=== PATIENT | female | born 1975 | race Caucasian/White ===

== ENCOUNTER 2021-05-04 10:56 | Emergency (ER) | payer BC ==
[2021-05-04] MEDS ORDERED: Ondansetron 4 MG/2 ML SDV IVPUSH ONE (11:20)
[2021-05-04] MEDS ORDERED: Ketorolac 30 MG/ML SDV IVPUSH ONE (11:20)
[2021-05-04] MEDS ORDERED: Morphine 4 MG/ML VIAL IVPUSH ONE (12:13)
[2021-05-04] MEDS ORDERED: HYDROmorphone 2 MG/ML SDV IVPUSH ONE ×2 (12:31→13:53)
--- NOTE | 2021-05-04 12:54 | EDM.PDOC ---
ED HPI GENERAL MEDICAL PROBLEM - General Chief Complaint: Abdominal Pain Stated Complaint: LOWER R ABD PAIN Time Seen by Provider: 05/04/21 11:00 Source of Information: Reports: Patient, Family History Limitations: Reports: No Limitations - History of Present Illness INITIAL COMMENTS - FREE TEXT/NARRATIVE: c/o RLQ pain sudden onset pain in RLQ one hr [employer], slept well, ate bfast, was sitting down at time, pain gradually came on and then was very intense, no meds at home not better here after Toradol 30 mg IV and then MS 4 mg IV slight nausea, given Zofran 4 mg IV hunched forward when sitting, curled in position when lying, rocking slightly, appears uncomfortable 8/10 pain on arrival, still 8/10 after Toradol and MS, given Dilaudid 1 mg IV u/a c/w UTI, labs otherwise neg CT abd/pelvis without contrast pending at bedside not had abd pain before no prior abd surgery on no meds PMH: h/o asthma SH: 3 children usual soft BM yesterday Right lower abdominal Pain Score (Numeric/FACES): 8 - Related Data Allergies Allergy/AdvReac Type Severity Reaction Status Date / Time No Known Allergies Allergy Verified 05/04/21 13:54 Past Medical History Other Respiratory History: uses an albuterol inhaler ED ROS GENERAL - Review of Systems Review Of Systems: See Below Constitutional: Reports: No Symptoms HEENT: Reports: No Symptoms Respiratory: Reports: No Symptoms Cardiovascular: Reports: No Symptoms Endocrine: Reports: No Symptoms GI/Abdominal: Reports: Abdominal Pain, Nausea. Denies: Vomiting : Reports: No Symptoms Musculoskeletal: Reports: No Symptoms Skin: Reports: No Symptoms Neurological: Reports: No Symptoms Psychiatric: Reports: No Symptoms Hematologic/Lymphatic: Reports: No Symptoms Immunologic: Reports: No Symptoms ED EXAM, GI/ABD - Physical Exam Exam: See Below Exam Limited By: No Limitations General Appearance: Alert, WD/WN, No Apparent Distress Ears: Hearing Grossly Normal Nose: Normal Inspection Throat/Mouth: Normal Inspection, Normal Voice Head: Atraumatic, Normocephalic Neck: Normal Inspection, Supple, Non-Tender, Full Range of Motion. No: Lymphadenopathy (R), Lymphadenopathy (L) Respiratory/Chest: No Respiratory Distress, Lungs Clear, Normal Breath Sounds, Chest Non-Tender Cardiovascular: Regular Rate, Rhythm, No Edema, No Murmur GI/Abdominal Exam: Soft, Non-Tender, No Organomegaly, No Distention, Other (1-2+ tender to deep palption over R UVJ, no flank tender b/l, nontender elsewhere, NT above R ant iliac spine) Back Exam: Normal Inspection, Full Range of Motion. No: CVA Tenderness (R), CVA Tenderness (L) Extremities: Normal Inspection, Non-Tender, No Pedal Edema Neurological: Alert, Oriented, CN II-XII Intact, Normal Cognition, No Motor/Sensory Deficits Psychiatric: Normal Affect, Normal Mood Skin Exam: Warm, Dry, Intact, Normal Color, No Rash Lymphatic: No Adenopathy Course - Vital Signs Last Recorded V/S: Last Vital Signs Temp 36.6 C 05/04/21 11:00 Pulse 75 05/04/21 11:00 Resp 18 05/04/21 11:00 BP 134/65 05/04/21 11:00 Pulse Ox 100 05/04/21 11:00 - Orders/Labs/Meds Orders: Active Orders 24 hr Category Date Time Status Abdomen Pelvis wo Cont [CT] Stat Exams 05/04/21 11:18 Ordered CULTURE URINE [RM] Stat Lab 05/04/21 12:22 Ordered Labs: Laboratory Tests 05/04/21 05/04/21 05/04/21 Range/Units 11:30 11:30 11:30 WBC 8.1 (3.0-10.3) x10-3/uL RBC 4.68 (3.60-5.20) x10(6)uL Hgb 14.0 (11.4-15.5) g/dL Hct 42.4 (34.2-48.2) % MCV 90.6 (76.7-100.5) fL MCH 29.9 (23.9-33.9) pg MCHC 33.0 (31.9-34.8) g/dL RDW 13.9 (12.3-16.5) % Plt Count 295 (151-488) x10(3)uL MPV 8.7 (7.1-12.4) fL Neut % (Auto) 62.8 (30.8-76.2) % Lymph % (Auto) 27.2 (18.4-52.1) % [place] % (Auto) 6.2 (4.4-15.7) % Eos % (Auto) 2.9 (0.6-8.1) % Baso % (Auto) 0.9 (0.2-1.5) % Neut # (Auto) 5.1 (1.5-6.3) x10-3/uL Lymph # (Auto) 2.2 (1.0-4.4) x10-3/uL [place] # (Auto) 0.5 (0.3-1.0) x10-3/uL Eos # (Auto) 0.2 (0.0-0.8) x10-3/uL Baso # (Auto) 0.1 (0.0-0.1) x10-3/uL Sodium 141 (135-145) mmol/L Potassium 4.0 (3.5-5.3) mmol/L Chloride 105 (100-110) mmol/L Carbon Dioxide 28 (21-32) mmol/L BUN 8 (7-18) mg/dL Creatinine 0.9 (0.55-1.02) mg/dL Est Cr Clr Drug Dosing TNP Estimated GFR (MDRD) > 60 (>60) BUN/Creatinine Ratio 8.9 L (9-20) Glucose 111 (80-116) mg/dL Calcium 8.0 L (8.6-10.2) mg/dL Total Bilirubin 0.4 (0.1-1.3) mg/dL AST 13 (5-25) IU/L ALT 17 (12-36) U/L Alkaline Phosphatase 40 L (56-112) IU/L C-Reactive Protein < 0.2 L (0.5-0.9) mg/dL Total Protein 6.8 (6.0-8.0) g/dL Albumin 3.8 (3.5-5.2) g/dL Globulin 3.0 g/dL Albumin/Globulin Ratio 1.3 Lipase 112 (73-393) U/L Urine Color (YELLOW) Urine Appearance (CLEAR) Urine pH (5.0-6.5) Ur Specific [place] (1.010-1.025) Urine Protein (NEGATIVE) mg/dL Urine Glucose (UA) (NORMAL) mg/dL Urine Ketones (NEGATIVE) mg/dL Urine Occult Blood (NEGATIVE) Urine Nitrite (NEGATIVE) Urine Bilirubin (NEGATIVE) Urine Urobilinogen (NEGATIVE) mg/dL Ur Leukocyte Esterase (NEGATIVE) Urine RBC (0-5) Urine WBC (0-5) Ur Squamous Epith Cells (NS,R,O) Urine Bacteria (NS) Urine Mucus (NS) Urine HCG, Qual (NEGATIVE) 05/04/21 05/04/21 Range/Units 12:00 12:00 WBC (3.0-10.3) x10-3/uL RBC (3.60-5.20) x10(6)uL Hgb (11.4-15.5) g/dL Hct (34.2-48.2) % MCV (76.7-100.5) fL MCH (23.9-33.9) pg MCHC (31.9-34.8) g/dL RDW (12.3-16.5) % Plt Count (151-488) x10(3)uL MPV (7.1-12.4) fL Neut % (Auto) (30.8-76.2) % Lymph % (Auto) (18.4-52.1) % [place] % (Auto) (4.4-15.7) % Eos % (Auto) (0.6-8.1) % Baso % (Auto) (0.2-1.5) % Neut # (Auto) (1.5-6.3) x10-3/uL Lymph # (Auto) (1.0-4.4) x10-3/uL [place] # (Auto) (0.3-1.0) x10-3/uL Eos # (Auto) (0.0-0.8) x10-3/uL Baso # (Auto) (0.0-0.1) x10-3/uL Sodium (135-145) mmol/L Potassium (3.5-5.3) mmol/L Chloride (100-110) mmol/L Carbon Dioxide (21-32) mmol/L BUN (7-18) mg/dL Creatinine (0.55-1.02) mg/dL Est Cr Clr Drug Dosing Estimated GFR (MDRD) (>60) BUN/Creatinine Ratio (9-20) Glucose (80-116) mg/dL Calcium (8.6-10.2) mg/dL Total Bilirubin (0.1-1.3) mg/dL AST (5-25) IU/L ALT (12-36) U/L Alkaline Phosphatase (56-112) IU/L C-Reactive Protein (0.5-0.9) mg/dL Total Protein (6.0-8.0) g/dL Albumin (3.5-5.2) g/dL Globulin g/dL Albumin/Globulin Ratio Lipase (73-393) U/L Urine Color Yellow (YELLOW) Urine Appearance Slightly cloudy (CLEAR) Urine pH 7.0 H (5.0-6.5) Ur Specific [place] 1.010 (1.010-1.025) Urine Protein Negative (NEGATIVE) mg/dL Urine Glucose (UA) Normal (NORMAL) mg/dL Urine Ketones Negative (NEGATIVE) mg/dL Urine Occult Blood Negative (NEGATIVE) Urine Nitrite Negative (NEGATIVE) Urine Bilirubin Negative (NEGATIVE) Urine Urobilinogen 1 H (NEGATIVE) mg/dL Ur Leukocyte Esterase Small H (NEGATIVE) Urine RBC 0-5 (0-5) Urine WBC 0-5 (0-5) Ur Squamous Epith Cells Moderate H (NS,R,O) Urine Bacteria Moderate H (NS) Urine Mucus Many H (NS) Urine HCG, Qual Negative (NEGATIVE) Meds: Medications Discontinued Medications Generic Name Dose Route Start Last Admin Trade Name Lincolnq PRN Reason Stop Dose Admin Hydromorphone HCl 1 mg 05/04/21 12:31 05/04/21 12:46 Hydromorphone 2 Mg/Ml Sdv IVPUSH 05/04/21 12:32 1 mg ONETIME ONE Administration Hydromorphone HCl 0.5 mg 05/04/21 13:53 Hydromorphone 2 Mg/Ml Sdv IVPUSH 05/04/21 13:54 ONETIME ONE Ketorolac Tromethamine 30 mg 05/04/21 11:20 05/04/21 11:48 Ketorolac 30 Mg/Ml Sdv IVPUSH 05/04/21 11:21 30 mg ONETIME ONE Administration Morphine Sulfate 4 mg 05/04/21 12:13 05/04/21 12:15 Morphine 4 Mg/Ml Vial IVPUSH 05/04/21 12:14 4 mg ONETIME ONE Administration Ondansetron HCl 4 mg 05/04/21 11:20 05/04/21 11:48 Ondansetron 4 Mg/2 Ml Sdv IVPUSH 05/04/21 11:21 4 mg ONETIME ONE Administration - Re-Assessments/Exams Free Text/Narrative Re-Assessment/Exam: 05/04/21 13:57 radiologist called, CT abd/pelvis without contrast with no pathology in RLQ, a small R pneumo noted altho no pul sxs and PO 100% on RA, pt is a smoker on additional discussion radiologist reviewed images of RLQ and thought R ovarian might be mildly enlarged, c/w torsion, u/s suggested altho not available here pt with pain increasing again from 04/08 after Toradol/MS/Dilaudid, clinically pt has evidence of R ovarian torsion called placed to Dr Dawkins, [facility] for ED to ED transfer for u/s and social service agency director consult, he accepted pt in transfer, requested to drive her no evidence of infection except UTI on labs, which is incidental pt is tender localized over the R ovary, no stone or hematuria present UC pending, will give ceftriaxone 1 gm IV push now just prior to transfer pt knows to be NPO Departure - Departure Time of Disposition: 13:56 Disposition: DC/Tfer to Other 70 Condition: Fair Clinical Impression: Torsion of right ovary, Pneumothorax on right, UTI (urinary tract infection) - Discharge Information *PRESCRIPTION DRUG MONITORING PROGRAM REVIEWED*: Not Applicable *COPY OF PRESCRIPTION DRUG MONITORING REPORT IN PATIENT EVELYN: Not Applicable Forms: ED Department Discharge Sepsis Event Note (ED) - Evaluation Sepsis Screening Result: No Definite Risk - Focused Exam Vital Signs: Vital Signs Temp Pulse Resp BP Pulse Ox 05/04/21 11:00 36.6 C 75 18 134/65 100 - My Orders Last 24 Hours: My Active Orders 05/04/21 11:18 Abdomen Pelvis wo Cont [CT] Stat 05/04/21 12:22 CULTURE URINE [RM] Stat - Assessment/Plan Last 24 Hours: My Active Orders 05/04/21 11:18 Abdomen Pelvis wo Cont [CT] Stat 05/04/21 12:22 CULTURE URINE [RM] Stat
[2021-05-04] MEDS ORDERED: cefTRIAXone 2 GM Vial IVPUSH ONE (13:56)
[2021-05-04 14:48] VITALS: BP 118/71; PULSE 69
== END 2021-05-04 14:40 | disposition other institution (70) ==
LOC: FB.ED 10:56
DX: N83.511 Torsion of right ovary and ovarian pedicle (principal); J93.9 Pneumothorax, unspecified; N39.0 Urinary tract infection, site not specified
CPT/HCPCS: 36415; 74176; 80053; 81001; 81025; 83690; 85025; 86140; 87086; 87088; 87186; 96374; 96375; 96376; 99285; J0696; J1170; J1885; J2270; J2405